=== PATIENT | female | born 1970 | race Caucasian/White ===

== ENCOUNTER 2017-04-24 20:50 | Inpatient (IN) | payer MEDICAID, OTHER ==
[2017-04-24] MEDS: ACETAMINOPHEN 325 MG TAB PO (22:59)
[2017-04-24] MEDS: VANCOMYCIN 1 GM (PMX) 250 ML IVPB (22:59)
[2017-04-24] MEDS: PIPER-TAZO 3.375 GM IV (PMX) 100 ML IVPB (22:59)
[2017-04-24] MEDS: SODIUM CHLORIDE 0.9% 1L BAG IV* (22:59)
[2017-04-24 23:09] LABS: ADD MAN DIFF? NO
[2017-04-24 23:11] LABS: ABNORMAL IP MESSAGE 1; BASOPHIL # 0.1 10^3/ul (0.0-0.1); BASOPHILS % 0.3 % (0.0-2.0); HEMATOCRIT 40.4 % (37.0-47.0); HEMOGLOBIN 13.4 g/dl (12.0-16.0); LYMPHOCYTES # 1.5 10^3/ul (0.8-2.9); LYMPHOCYTES % 8.2 % (15.0-51.0); MEAN CORPUSCULAR HEMOGLOBIN 25.8 pg (29.0-33.0); MEAN CORPUSCULAR HGB CONC 33.2 g/dl (32.0-37.0); MEAN CORPUSCULAR VOLUME 77.8 fl (82.0-101.0); MONOCYTE # 1.3 10^3/ul (0.3-0.9); MONOCYTES % 7.1 % (0.0-11.0); NEUTROPHIL # 15.2 10^3/ul (1.6-7.5); NEUTROPHILS % 82.4 % (39.0-77.0); PLATELET COUNT 198 10^3/UL (140-415); RED BLOOD COUNT 5.19 10^6/ul (4.20-5.40); RED CELL DISTRIBUTION WIDTH 12.6 % (11.5-14.5)
[2017-04-24 23:11] LABS: WHITE BLOOD COUNT 18.4 10^3/ul (4.8-10.8)
[2017-04-24 23:14] LABS: URINE PH (Dip) POC 5.5 (5.0-8.5)
[2017-04-24 23:14] LABS: URINE BLOOD (Dip) POC 2+ (NEGATIVE); URINE KETONES (Dip) POC 4+ (NEGATIVE); URINE LEUKOCYTE EST (Dip) POC Negative (NEGATIVE); URINE NITRITE (Dip) POC Negative (NEGATIVE); URINE TOTAL PROTEIN POC 2+ (NEGATIVE)
[2017-04-24 23:23] LABS: AADO2 Arterial 28.4 mmHg (7.0-24.0); Arterial Base Excess -8.3 mmol/L (-3.0-3); Arterial Blood Gas Oxygen Sat 97.4 mmHG (95.0-98.0); Arterial COHb 0.5 % (0.0-3.0); Arterial Fraction of Oxyhgb 96.8 % (93.0-99.0); Arterial HCO3 13.8 mmol/L (22.0-26.0); Arterial MetHb 0.1 % (0.0-1.5); Arterial Total Hemglobin 12.6 g/dl (12.0-18.0); MODE ROOM AIR; Site Right Radial
[2017-04-24 23:46] LABS: POSITIVE DIFF @See below
[2017-04-25] MEDS: INSULIN LISPRO 100 UNIT/ML VIAL SC (00:04)
[2017-04-25 00:20] LABS: INR 1.26; PT RATIO 1.3
[2017-04-25 00:34] LABS: LACTIC ACID 2.9 mmol/L (0.5-2.0)
[2017-04-25 00:45] LABS: ALANINE AMINOTRANSFERASE 17 IU/L (13-69); ALBUMIN 3.1 g/dl (3.3-4.9); ALBUMIN/GLOBULIN RATIO 0.79; ALKALINE PHOSPHATASE 158 IU/L (42-121); ANION GAP 24 (8-16); ASPARTATE AMINO TRANSFERASE 11 IU/L (15-46); BILIRUBIN,INDIRECT 0.6 mg/dl (0-1.1); BILIRUBIN,TOTAL 0.6 mg/dl (0.2-1.3); BLOOD UREA NITROGEN 8 mg/dl (7-20); CALCIUM 8.5 mg/dl (8.4-10.2); CARBON DIOXIDE 15 mmol/L (21-31); CHLORIDE 97 mmol/L (97-110); CREATININE 0.55 mg/dl (0.44-1.00); POTASSIUM 3.7 mmol/L (3.5-5.1); SODIUM 132 mmol/L (135-144); TROPONIN-I < 0.012 ng/ml (0.00-0.12)
[2017-04-25 00:47] LABS: GLUCOSE 479 mg/dl (70-220)
[2017-04-25 00:59] LABS: ERYTHROCYTE SEDIMENTATION RATE 105 mm/Hr (0-20)
[2017-04-25] MEDS: ACCU-CHEK XX ×24 (01:30→23:10)
[2017-04-25] MEDS: INSULIN HUMAN REGULAR 100 UNIT in SOD CHLORIDE 0.9% 99 ML IV ×2 (01:56→14:08)
[2017-04-25] MEDS ORDERED: ONDANSETRON 4 MG INJ IV ×2 (02:00→13:30)
[2017-04-25] MEDS ORDERED: DEXTROSE 50% 50 ML SYRINGE IV ×2 (02:00)
[2017-04-25] MEDS ORDERED: ACETAMINOPHEN 650MG/20.3ML CUP PO (02:00)
[2017-04-25] MEDS ORDERED: morphine 2 MG INJ IV (02:00)
[2017-04-25] MEDS ORDERED: INSULIN HUMAN REGULAR 100 UNIT in SOD CHLORIDE 0.9% 99 ML IV (02:00)
[2017-04-25] MEDS: SOD CHLORIDE 0.9% 1,000 ML IV ×2 (02:26→05:37)
[2017-04-25 03:13] LABS: ANION GAP 12 (8-16); BLOOD UREA NITROGEN 7 mg/dl (7-20); CALCIUM 8.4 mg/dl (8.4-10.2); CARBON DIOXIDE 22 mmol/L (21-31); CHLORIDE 103 mmol/L (97-110); CREATININE 0.51 mg/dl (0.44-1.00); GLUCOSE 302 mg/dl (70-220); POTASSIUM 3.5 mmol/L (3.5-5.1); SODIUM 133 mmol/L (135-144)
[2017-04-25 03:13] LABS: PHOSPHORUS 1.8 mg/dl (2.5-4.9)
[2017-04-25 03:14] LABS: LACTIC ACID 1.5 mmol/L (0.5-2.0)
[2017-04-25 03:22] LABS: AMPHETAMINE/METHAMPHETAMINE Negative (NEGATIVE); BARBITURATES Negative (NEGATIVE); BENZODIAZEPINES Negative (NEGATIVE); CANNABINOIDS Negative (NEGATIVE); COCAINE Negative (NEGATIVE); OPIATES Negative (NEGATIVE)
[2017-04-25 03:23] LABS: ETHANOL < 10.0 mg/dl
[2017-04-25] MEDS: CLINDAMYCIN 900 MG/D5W (PMX) 50 ML IVPB ×3 (04:25→22:14)
[2017-04-25 04:26] LABS: HEMOGLOBIN A1C 12.7 % (0-5.9)
[2017-04-25] MEDS ORDERED: VANCOMYCIN IV PER PHARMACY XX (04:30)
[2017-04-25 05:18] LABS: ADD MAN DIFF? NO; BASOPHILS % 0.3 % (0.0-2.0); EOSINOPHILS % 0.3 % (0.0-7.0); HEMATOCRIT 31.4 % (37.0-47.0); HEMOGLOBIN 10.7 g/dl (12.0-16.0); LYMPHOCYTES % 12.9 % (15.0-51.0); MEAN CORPUSCULAR HGB CONC 34.1 g/dl (32.0-37.0); MEAN CORPUSCULAR VOLUME 76.4 fl (82.0-101.0); MONOCYTE # 1.1 10^3/ul (0.3-0.9); MONOCYTES % 6.7 % (0.0-11.0); NEUTROPHIL # 12.3 10^3/ul (1.6-7.5); NEUTROPHILS % 78.3 % (39.0-77.0); PLATELET COUNT 198 10^3/UL (140-415); RED BLOOD COUNT 4.11 10^6/ul (4.20-5.40); RED CELL DISTRIBUTION WIDTH 12.6 % (11.5-14.5)
[2017-04-25 05:18] LABS: WHITE BLOOD COUNT 15.7 10^3/ul (4.8-10.8)
[2017-04-25] MEDS ORDERED: PENDING SANTYL ORDER FOR WOUND CARE XX (05:30)
[2017-04-25] MEDS: PANTOPRAZOLE (EC) 40 MG TAB PO (05:31)
[2017-04-25 05:48] LABS: LACTIC ACID 1.2 mmol/L (0.5-2.0)
[2017-04-25 05:49] LABS: ANION GAP 11 (8-16); BLOOD UREA NITROGEN 8 mg/dl (7-20); CALCIUM 8.1 mg/dl (8.4-10.2); CARBON DIOXIDE 20 mmol/L (21-31); CHLORIDE 106 mmol/L (97-110); CREATININE 0.38 mg/dl (0.44-1.00); GLUCOSE 213 mg/dl (70-220); POTASSIUM 3.3 mmol/L (3.5-5.1); SODIUM 134 mmol/L (135-144)
[2017-04-25 05:52] LABS: MAGNESIUM 1.6 mg/dl (1.7-2.5)
[2017-04-25] MEDS: PIPER-TAZO 3.375 GM IV (PMX) 100 ML IVPB ×3 (06:08→18:07)
[2017-04-25] MEDS ORDERED: ONDANSETRON 4 MG INJ (07:00)
[2017-04-25] MEDS ORDERED: METOCLOPRAMIDE 10 MG INJ (07:00)
[2017-04-25] MEDS: POTASSIUM CHLORIDE 50 ML IVPB ×3 (07:56→10:40)
[2017-04-25] MEDS: DEXTROSE 5%-0.45% NACL 1,000 ML IV ×3 (09:01→21:47)
[2017-04-25] MEDS: VANCOMYCIN 1.25 GM in SOD CHLORIDE 0.45% 250 ML IVPB ×2 (10:49→21:07)
[2017-04-25] MEDS ORDERED: COLLAGENASE 30 GM TUBE TOP (11:00)
[2017-04-25] MEDS ORDERED: FENTAnyl 50 MCG/ML VIAL (12:38)
[2017-04-25] MEDS ORDERED: MIDAZOLAM 1 MG/ML 2 ML INJ (12:39)
[2017-04-25] MEDS ORDERED: PHENYLephrine (100 MCG/ML) 5ML SYG (12:39)
[2017-04-25 12:40] LABS: IRON < 10 ug/dl (35-150)
[2017-04-25] MEDS ORDERED: ETOMIDATE 20 MG INJ (12:43)
[2017-04-25] MEDS ORDERED: LIDOCAINE 100 MG SYRINGE (12:43)
[2017-04-25 12:44] LABS: TOTAL IRON BINDING CAPACITY 221 ug/dl (241-421)
[2017-04-25 12:49] LABS: ANION GAP 13 (8-16); BLOOD UREA NITROGEN 8 mg/dl (7-20); CALCIUM 8.4 mg/dl (8.4-10.2); CARBON DIOXIDE 20 mmol/L (21-31); CHLORIDE 106 mmol/L (97-110); CREATININE 0.44 mg/dl (0.44-1.00); GLUCOSE 150 mg/dl (70-220); POTASSIUM 3.7 mmol/L (3.5-5.1); SODIUM 135 mmol/L (135-144)
[2017-04-25] MEDS ORDERED: HYDROmorphONE 2 MG/ML SYG (12:49)
[2017-04-25] MEDS ORDERED: METOCLOPRAMIDE 10 MG INJ IV (13:30)
[2017-04-25] MEDS ORDERED: LABETALOL HCL 20MG INJ IV (13:30)
[2017-04-25] MEDS ORDERED: hydrALAzine 20 MG INJ IV (13:30)
[2017-04-25] MEDS ORDERED: HYDROmorphONE (0.2 MG/ML) 10ML SYG IV ×2 (13:30)
[2017-04-25] MEDS ORDERED: PROCHLORPERAZINE 10 MG INJ IV (13:30)
[2017-04-25] MEDS ORDERED: DIPHENHYDRAMINE 50 MG INJ IV (13:30)
[2017-04-25] MEDS: POLYMYXIN/BACITRACIN 1L IRRIG (13:46)
[2017-04-25] MEDS: TOBRAMYCIN 1.2 GM POWDER (13:47)
[2017-04-25 14:15] LABS: ANION GAP 12 (8-16); BLOOD UREA NITROGEN 9 mg/dl (7-20); CALCIUM 8.2 mg/dl (8.4-10.2); CARBON DIOXIDE 20 mmol/L (21-31); CHLORIDE 107 mmol/L (97-110); CREATININE 0.43 mg/dl (0.44-1.00); GLUCOSE 158 mg/dl (70-220); POTASSIUM 3.4 mmol/L (3.5-5.1); SODIUM 136 mmol/L (135-144)
[2017-04-25] MEDS: DOCUSATE SODIUM 100 MG CAP PO ×2 (16:12→21:06)
[2017-04-25] MEDS: POTASSIUM CHLORIDE (SR) 20 MEQ TAB PO ×2 (17:06→19:51)
[2017-04-25] MEDS: LINAGLIPTIN 5 MG TABLET PO (17:06)
[2017-04-25] MEDS: SOD FERRIC GLUC COMPLX 125 MG in SOD CHLORIDE 0.9% 100 ML IVPB (17:16)
[2017-04-25] MEDS: INSULIN ASPART [NOVOLOG] 3 ML PEN SC ×3 (17:35→21:00)
[2017-04-25 19:22] LABS: ANION GAP 13 (8-16); BLOOD UREA NITROGEN 10 mg/dl (7-20); CALCIUM 8.3 mg/dl (8.4-10.2); CARBON DIOXIDE 21 mmol/L (21-31); CHLORIDE 106 mmol/L (97-110); CREATININE 0.48 mg/dl (0.44-1.00); GLUCOSE 139 mg/dl (70-220); POTASSIUM 3.7 mmol/L (3.5-5.1); SODIUM 136 mmol/L (135-144)
[2017-04-25] MEDS: INSULIN GLARGINE [LANtus] 3 ML PEN SC (19:51)
[2017-04-25 21:54] LABS: ANION GAP 12 (8-16); BLOOD UREA NITROGEN 11 mg/dl (7-20); CALCIUM 8.7 mg/dl (8.4-10.2); CARBON DIOXIDE 23 mmol/L (21-31); CHLORIDE 105 mmol/L (97-110); CREATININE 0.58 mg/dl (0.44-1.00); GLUCOSE 175 mg/dl (70-220); POTASSIUM 4.3 mmol/L (3.5-5.1); SODIUM 136 mmol/L (135-144)
[2017-04-26] MEDS: ACCU-CHEK XX ×12 (00:11→21:00)
[2017-04-26] MEDS: POTASSIUM CHLORIDE (SR) 20 MEQ TAB PO ×2 (00:22→04:51)
[2017-04-26] MEDS: PIPER-TAZO 3.375 GM IV (PMX) 100 ML IVPB ×4 (00:22→17:08)
[2017-04-26] MEDS: SOD CHLORIDE 0.9% 1,000 ML IV (01:12)
[2017-04-26] MEDS: INSULIN ASPART [NOVOLOG] 3 ML PEN SC ×8 (05:28→20:07)
[2017-04-26] MEDS: PANTOPRAZOLE (EC) 40 MG TAB PO (05:29)
[2017-04-26 05:41] LABS: ADD MAN DIFF? NO
[2017-04-26 05:45] LABS: WHITE BLOOD COUNT 14.3 10^3/ul (4.8-10.8)
[2017-04-26 05:45] LABS: BASOPHILS % 0.3 % (0.0-2.0); EOSINOPHILS # 0.1 10^3/ul (0.0-0.5); EOSINOPHILS % 0.5 % (0.0-7.0); HEMATOCRIT 28.8 % (37.0-47.0); HEMOGLOBIN 9.6 g/dl (12.0-16.0); LYMPHOCYTES # 2.3 10^3/ul (0.8-2.9); MEAN CORPUSCULAR HEMOGLOBIN 25.9 pg (29.0-33.0); MEAN CORPUSCULAR HGB CONC 33.3 g/dl (32.0-37.0); MEAN CORPUSCULAR VOLUME 77.8 fl (82.0-101.0); MEAN PLATELET VOLUME 12.1 fl (7.4-10.4); MONOCYTE # 1.1 10^3/ul (0.3-0.9); MONOCYTES % 7.4 % (0.0-11.0); NEUTROPHIL # 10.7 10^3/ul (1.6-7.5); NEUTROPHILS % 74.7 % (39.0-77.0); PLATELET COUNT 213 10^3/UL (140-415); RED CELL DISTRIBUTION WIDTH 13.1 % (11.5-14.5)
[2017-04-26] MEDS: CLINDAMYCIN 900 MG/D5W (PMX) 50 ML IVPB ×3 (06:12→21:27)
[2017-04-26 06:23] LABS: MAGNESIUM 1.6 mg/dl (1.7-2.5)
[2017-04-26 06:23] LABS: PHOSPHORUS 1.8 mg/dl (2.5-4.9)
[2017-04-26 06:26] LABS: ALANINE AMINOTRANSFERASE 23 IU/L (13-69); ALBUMIN 2.6 g/dl (3.3-4.9); ALBUMIN/GLOBULIN RATIO 0.68; ALKALINE PHOSPHATASE 192 IU/L (42-121); ANION GAP 12 (8-16); ASPARTATE AMINO TRANSFERASE 21 IU/L (15-46); BILIRUBIN,INDIRECT 0.5 mg/dl (0-1.1); BILIRUBIN,TOTAL 0.5 mg/dl (0.2-1.3); BLOOD UREA NITROGEN 12 mg/dl (7-20); CALCIUM 8.4 mg/dl (8.4-10.2); CARBON DIOXIDE 20 mmol/L (21-31); CHLORIDE 105 mmol/L (97-110); CREATININE 0.49 mg/dl (0.44-1.00); GLUCOSE 228 mg/dl (70-220); POTASSIUM 4.3 mmol/L (3.5-5.1); SODIUM 133 mmol/L (135-144); TOTAL PROTEIN 6.4 g/dl (6.1-8.1)
[2017-04-26] MEDS: VANCOMYCIN 1.25 GM in SOD CHLORIDE 0.45% 250 ML IVPB ×3 (08:35→22:38)
[2017-04-26] MEDS: COLLAGENASE 30 GM TUBE TOP (09:00)
[2017-04-26] MEDS: LINAGLIPTIN 5 MG TABLET PO (09:35)
[2017-04-26] MEDS: DOCUSATE SODIUM 100 MG CAP PO ×2 (09:35→21:26)
[2017-04-26] MEDS ORDERED: DEXTROSE 50% 50 ML SYRINGE IV ×2 (11:00)
[2017-04-26] MEDS ORDERED: GLUCOSE GEL 15 GRAM TUBE BUCCAL (11:00)
[2017-04-26] MEDS ORDERED: GLUCOSE GEL 15 GRAM TUBE PO ×2 (11:00)
[2017-04-26] MEDS ORDERED: GLUCAGON 1 MG INJ IM (11:00)
[2017-04-26] MEDS: metFORMIN 500 MG TAB PO ×2 (11:08→17:09)
[2017-04-26] MEDS: TERBINAFINE 250 MG TAB PO ×2 (11:43→21:26)
[2017-04-26] MEDS: SOD FERRIC GLUC COMPLX 125 MG in SOD CHLORIDE 0.9% 100 ML IVPB (17:49)
[2017-04-26] MEDS: FLUCONAZOLE 200 MG/NS (PMX) 100 ML IVPB ×2 (20:02→20:08)
[2017-04-26] MEDS: INSULIN GLARGINE [LANtus] 3 ML PEN SC (20:04)
[2017-04-26 21:04] LABS: VANCOMYCIN,TROUGH 6.3 ug/ml (10.0-20.0)
[2017-04-27] MEDS: PIPER-TAZO 3.375 GM IV (PMX) 100 ML IVPB ×4 (01:11→20:11)
[2017-04-27] MEDS: ACCU-CHEK XX ×6 (01:11→10:05)
[2017-04-27] MEDS: VANCOMYCIN 1.25 GM in SOD CHLORIDE 0.45% 250 ML IVPB ×3 (05:11→21:24)
[2017-04-27] MEDS: BENZONATATE 100 MG CAP PO (05:12)
[2017-04-27] MEDS: PANTOPRAZOLE (EC) 40 MG TAB PO (05:12)
[2017-04-27 05:53] LABS: ADD MAN DIFF? NO
[2017-04-27 06:04] LABS: WHITE BLOOD COUNT 12.2 10^3/ul (4.8-10.8)
[2017-04-27 06:04] LABS: BASOPHILS % 0.3 % (0.0-2.0); EOSINOPHILS # 0.1 10^3/ul (0.0-0.5); EOSINOPHILS % 0.8 % (0.0-7.0); HEMATOCRIT 28.3 % (37.0-47.0); HEMOGLOBIN 9.5 g/dl (12.0-16.0); LYMPHOCYTES # 2.7 10^3/ul (0.8-2.9); MEAN CORPUSCULAR HEMOGLOBIN 25.8 pg (29.0-33.0); MEAN CORPUSCULAR HGB CONC 33.6 g/dl (32.0-37.0); MEAN CORPUSCULAR VOLUME 76.9 fl (82.0-101.0); MEAN PLATELET VOLUME 11.9 fl (7.4-10.4); MONOCYTE # 0.9 10^3/ul (0.3-0.9); MONOCYTES % 7.2 % (0.0-11.0); NEUTROPHIL # 8.3 10^3/ul (1.6-7.5); NEUTROPHILS % 68.3 % (39.0-77.0); PLATELET COUNT 222 10^3/UL (140-415); RED BLOOD COUNT 3.68 10^6/ul (4.20-5.40); RED CELL DISTRIBUTION WIDTH 13.4 % (11.5-14.5)
[2017-04-27 06:13] LABS: POSITIVE DIFF @See below
[2017-04-27 06:33] LABS: ANION GAP 13 (8-16); BLOOD UREA NITROGEN 8 mg/dl (7-20); CALCIUM 7.9 mg/dl (8.4-10.2); CARBON DIOXIDE 24 mmol/L (21-31); CHLORIDE 101 mmol/L (97-110); CREATININE 0.49 mg/dl (0.44-1.00); GLUCOSE 183 mg/dl (70-220); POTASSIUM 3.5 mmol/L (3.5-5.1); SODIUM 134 mmol/L (135-144)
[2017-04-27] MEDS: LINAGLIPTIN 5 MG TABLET PO (08:05)
[2017-04-27] MEDS: metFORMIN 500 MG TAB PO ×2 (08:06→17:50)
[2017-04-27] MEDS: FLUCONAZOLE 100 MG TAB PO (08:06)
[2017-04-27] MEDS: DOCUSATE SODIUM 100 MG CAP PO ×2 (08:06→20:18)
[2017-04-27] MEDS: TERBINAFINE 250 MG TAB PO ×2 (08:06→20:18)
[2017-04-27 08:18] LABS: MAGNESIUM 1.4 mg/dl (1.7-2.5)
[2017-04-27] MEDS: INSULIN ASPART [NOVOLOG] 3 ML PEN SC ×7 (08:22→20:19)
[2017-04-27] MEDS: COLLAGENASE 30 GM TUBE TOP (09:00)
[2017-04-27] MEDS: CLINDAMYCIN 900 MG/D5W (PMX) 50 ML IVPB ×2 (10:24→15:09)
[2017-04-27 16:16] LABS: CREATININE, RANDOM URINE 29 mg/dL (20-320); MICROALBUMIN 19.8 mg/dL; MICROALBUMIN/CREATININE RATIO 683 (<30)
[2017-04-27] MEDS: MAGNESIUM SULFATE 4 GM/100 ML 100 ML IVPB (17:40)
[2017-04-27] MEDS: SOD FERRIC GLUC COMPLX 125 MG in SOD CHLORIDE 0.9% 100 ML IVPB (20:17)
[2017-04-27] MEDS: INSULIN GLARGINE [LANtus] 3 ML PEN SC (20:21)
[2017-04-28] MEDS: PIPER-TAZO 3.375 GM IV (PMX) 100 ML IVPB ×2 (00:32→05:29)
[2017-04-28] MEDS: ACCU-CHEK XX (01:40)
[2017-04-28 03:56] LABS: ADD MAN DIFF? NO
[2017-04-28 04:05] LABS: HEMATOCRIT 28.6 % (37.0-47.0); HEMOGLOBIN 9.5 g/dl (12.0-16.0); MEAN CORPUSCULAR HEMOGLOBIN 25.8 pg (29.0-33.0); MEAN CORPUSCULAR HGB CONC 33.2 g/dl (32.0-37.0); MEAN CORPUSCULAR VOLUME 77.7 fl (82.0-101.0); MEAN PLATELET VOLUME 11.2 fl (7.4-10.4); NUCLEATED RED BLOOD CELLS% 0.5 /100WBC (0.0-0.0); PLATELET COUNT 261 10^3/UL (140-415); RED BLOOD COUNT 3.68 10^6/ul (4.20-5.40); RED CELL DISTRIBUTION WIDTH 13.4 % (11.5-14.5)
[2017-04-28 04:17] LABS: ANION GAP 13 (8-16); BLOOD UREA NITROGEN 9 mg/dl (7-20); CALCIUM 8.3 mg/dl (8.4-10.2); CARBON DIOXIDE 27 mmol/L (21-31); CHLORIDE 100 mmol/L (97-110); CREATININE 0.56 mg/dl (0.44-1.00); GLUCOSE 119 mg/dl (70-220); POTASSIUM 3.2 mmol/L (3.5-5.1); SODIUM 137 mmol/L (135-144)
[2017-04-28 04:34] LABS: POSITIVE DIFF @See below
[2017-04-28] MEDS: VANCOMYCIN 1.25 GM in SOD CHLORIDE 0.45% 250 ML IVPB (05:29)
[2017-04-28] MEDS: LEVOFLOXACIN 750 MG TABLET PO (05:29)
[2017-04-28] MEDS: PANTOPRAZOLE (EC) 40 MG TAB PO (05:29)
[2017-04-28] MEDS: INSULIN ASPART [NOVOLOG] 3 ML PEN SC ×7 (08:00→21:00)
[2017-04-28] MEDS: metFORMIN 500 MG TAB PO ×2 (08:04→17:27)
[2017-04-28] MEDS: SODIUM HYPOCHLORITE 1/40% 1L IRRIG IRR ×2 (08:04→21:10)
[2017-04-28] MEDS: LINAGLIPTIN 5 MG TABLET PO (08:05)
[2017-04-28] MEDS: DOCUSATE SODIUM 100 MG CAP PO ×2 (08:05→21:03)
[2017-04-28] MEDS: TERBINAFINE 250 MG TAB PO ×2 (08:05→21:03)
[2017-04-28] MEDS: ENOXAPARIN 40 MG/0.4 ML SYG SC (08:07)
[2017-04-28] MEDS: COLLAGENASE 30 GM TUBE TOP (08:14)
[2017-04-28] MEDS: VANCOMYCIN 1 GM 250 ML IVPB ×2 (12:33→21:14)
[2017-04-28] MEDS: POTASSIUM CHLORIDE (SR) 20 MEQ TAB PO (12:33)
[2017-04-28] MEDS: FLUCONAZOLE 100 MG TAB PO (16:11)
[2017-04-28] MEDS: SOD FERRIC GLUC COMPLX 125 MG in SOD CHLORIDE 0.9% 100 ML IVPB (16:15)
[2017-04-28] MEDS: INSULIN GLARGINE [LANtus] 3 ML PEN SC (21:07)
[2017-04-29] MEDS: ACCU-CHEK XX (02:00)
[2017-04-29] MEDS: PANTOPRAZOLE (EC) 40 MG TAB PO (05:17)
[2017-04-29] MEDS: LEVOFLOXACIN 750 MG TABLET PO (05:17)
[2017-04-29] MEDS: VANCOMYCIN 1 GM 250 ML IVPB ×3 (05:20→22:21)
[2017-04-29 06:15] LABS: ADD MAN DIFF? NO
[2017-04-29 06:19] LABS: BASOPHILS % 0.3 % (0.0-2.0); EOSINOPHILS # 0.1 10^3/ul (0.0-0.5); EOSINOPHILS % 0.9 % (0.0-7.0); HEMOGLOBIN 9.9 g/dl (12.0-16.0); LYMPHOCYTES # 3.6 10^3/ul (0.8-2.9); LYMPHOCYTES % 26.2 % (15.0-51.0); MEAN CORPUSCULAR HEMOGLOBIN 25.4 pg (29.0-33.0); MEAN CORPUSCULAR HGB CONC 31.9 g/dl (32.0-37.0); MEAN CORPUSCULAR VOLUME 79.7 fl (82.0-101.0); MONOCYTE # 1.3 10^3/ul (0.3-0.9); MONOCYTES % 9.4 % (0.0-11.0); NEUTROPHIL # 8.1 10^3/ul (1.6-7.5); NEUTROPHILS % 59.2 % (39.0-77.0); NUCLEATED RED BLOOD CELLS # 0.1 10^3/ul (0.0-0.0); PLATELET COUNT 343 10^3/UL (140-415); RED BLOOD COUNT 3.89 10^6/ul (4.20-5.40); RED CELL DISTRIBUTION WIDTH 13.9 % (11.5-14.5)
[2017-04-29 06:19] LABS: WHITE BLOOD COUNT 13.7 10^3/ul (4.8-10.8)
[2017-04-29 06:31] LABS: POSITIVE DIFF @See below
[2017-04-29 06:59] LABS: ANION GAP 14 (8-16); BLOOD UREA NITROGEN 9 mg/dl (7-20); CALCIUM 8.6 mg/dl (8.4-10.2); CARBON DIOXIDE 28 mmol/L (21-31); CHLORIDE 104 mmol/L (97-110); CREATININE 0.62 mg/dl (0.44-1.00); GLUCOSE 100 mg/dl (70-220); PHOSPHORUS 3.4 mg/dl (2.5-4.9); POTASSIUM 3.6 mmol/L (3.5-5.1); SODIUM 142 mmol/L (135-144)
[2017-04-29] MEDS: COLLAGENASE 30 GM TUBE TOP (08:07)
[2017-04-29] MEDS: INSULIN ASPART [NOVOLOG] 3 ML PEN SC ×7 (08:12→21:00)
[2017-04-29] MEDS: DOCUSATE SODIUM 100 MG CAP PO ×2 (08:13→21:19)
[2017-04-29] MEDS: LINAGLIPTIN 5 MG TABLET PO (08:14)
[2017-04-29] MEDS: FLUCONAZOLE 100 MG TAB PO (08:14)
[2017-04-29] MEDS: metFORMIN 500 MG TAB PO ×2 (08:14→17:14)
[2017-04-29] MEDS: TERBINAFINE 250 MG TAB PO ×2 (08:14→21:19)
[2017-04-29] MEDS: SODIUM HYPOCHLORITE 1/40% 1L IRRIG IRR ×2 (08:15→21:19)
[2017-04-29] MEDS: ENOXAPARIN 40 MG/0.4 ML SYG SC (08:26)
[2017-04-29] MEDS: POTASSIUM CHLORIDE (SR) 20 MEQ TAB PO (12:02)
[2017-04-29] MEDS: SOD FERRIC GLUC COMPLX 125 MG in SOD CHLORIDE 0.9% 100 ML IVPB (16:45)
[2017-04-29] MEDS: INSULIN GLARGINE [LANtus] 3 ML PEN SC (21:22)
[2017-04-29 21:39] LABS: VANCOMYCIN,TROUGH 15.1 ug/ml (10.0-20.0)
[2017-04-29] MEDS: METOPROLOL 25 MG TAB PO (22:15)
[2017-04-30] MEDS: ACCU-CHEK XX (02:00)
[2017-04-30] MEDS: LEVOFLOXACIN 750 MG TABLET PO (06:00)
[2017-04-30] MEDS: PANTOPRAZOLE (EC) 40 MG TAB PO (06:00)
[2017-04-30] MEDS: VANCOMYCIN 1 GM 250 ML IVPB ×3 (06:00→21:00)
[2017-04-30 06:46] LABS: ADD MAN DIFF? NO
[2017-04-30 06:51] LABS: WHITE BLOOD COUNT 12.6 10^3/ul (4.8-10.8)
[2017-04-30 06:51] LABS: BASOPHILS % 0.2 % (0.0-2.0); EOSINOPHILS # 0.1 10^3/ul (0.0-0.5); HEMATOCRIT 30.5 % (37.0-47.0); HEMOGLOBIN 9.6 g/dl (12.0-16.0); LYMPHOCYTES # 2.9 10^3/ul (0.8-2.9); MEAN CORPUSCULAR HEMOGLOBIN 25.7 pg (29.0-33.0); MEAN CORPUSCULAR HGB CONC 31.5 g/dl (32.0-37.0); MEAN CORPUSCULAR VOLUME 81.6 fl (82.0-101.0); MEAN PLATELET VOLUME 10.8 fl (7.4-10.4); MONOCYTE # 1.1 10^3/ul (0.3-0.9); MONOCYTES % 8.3 % (0.0-11.0); NEUTROPHILS % 63.5 % (39.0-77.0); NUCLEATED RED BLOOD CELLS # 0.1 10^3/ul (0.0-0.0); NUCLEATED RED BLOOD CELLS% 0.8 /100WBC (0.0-0.0); PLATELET COUNT 353 10^3/UL (140-415); RED BLOOD COUNT 3.74 10^6/ul (4.20-5.40); RED CELL DISTRIBUTION WIDTH 14.3 % (11.5-14.5)
[2017-04-30 07:25] LABS: ANION GAP 12 (8-16); BLOOD UREA NITROGEN 10 mg/dl (7-20); CALCIUM 9.1 mg/dl (8.4-10.2); CARBON DIOXIDE 30 mmol/L (21-31); CHLORIDE 105 mmol/L (97-110); CREATININE 0.64 mg/dl (0.44-1.00); GLUCOSE 116 mg/dl (70-220); POTASSIUM 3.7 mmol/L (3.5-5.1); SODIUM 143 mmol/L (135-144)
[2017-04-30] MEDS: INSULIN ASPART [NOVOLOG] 3 ML PEN SC ×7 (08:08→21:00)
[2017-04-30] MEDS: metFORMIN 500 MG TAB PO ×2 (08:58→18:08)
[2017-04-30] MEDS: DOCUSATE SODIUM 100 MG CAP PO ×2 (08:58→20:59)
[2017-04-30] MEDS: LINAGLIPTIN 5 MG TABLET PO (08:58)
[2017-04-30] MEDS: TERBINAFINE 250 MG TAB PO ×2 (08:58→20:58)
[2017-04-30] MEDS: FLUCONAZOLE 100 MG TAB PO (08:58)
[2017-04-30] MEDS: METOPROLOL 25 MG TAB PO ×2 (08:59→20:59)
[2017-04-30] MEDS: SODIUM HYPOCHLORITE 1/40% 1L IRRIG IRR ×2 (09:00→21:03)
[2017-04-30] MEDS: COLLAGENASE 30 GM TUBE TOP (09:02)
[2017-04-30] MEDS: ENOXAPARIN 40 MG/0.4 ML SYG SC (09:03)
[2017-04-30] MEDS: INSULIN GLARGINE [LANtus] 3 ML PEN SC (21:07)
[2017-05-01] MEDS: ACCU-CHEK XX (02:00)
[2017-05-01] MEDS: VANCOMYCIN 1 GM 250 ML IVPB ×3 (05:27→20:40)
[2017-05-01] MEDS: LEVOFLOXACIN 750 MG TABLET PO (05:29)
[2017-05-01] MEDS: PANTOPRAZOLE (EC) 40 MG TAB PO (05:29)
[2017-05-01 06:20] LABS: ADD MAN DIFF? NO
[2017-05-01 06:32] LABS: WHITE BLOOD COUNT 11.3 10^3/ul (4.8-10.8)
[2017-05-01 06:32] LABS: BASOPHILS % 0.3 % (0.0-2.0); EOSINOPHILS # 0.2 10^3/ul (0.0-0.5); EOSINOPHILS % 1.4 % (0.0-7.0); HEMATOCRIT 31.3 % (37.0-47.0); HEMOGLOBIN 9.7 g/dl (12.0-16.0); LYMPHOCYTES # 2.8 10^3/ul (0.8-2.9); LYMPHOCYTES % 25.2 % (15.0-51.0); MEAN CORPUSCULAR HEMOGLOBIN 25.3 pg (29.0-33.0); MEAN CORPUSCULAR VOLUME 81.5 fl (82.0-101.0); MEAN PLATELET VOLUME 10.5 fl (7.4-10.4); MONOCYTE # 0.9 10^3/ul (0.3-0.9); MONOCYTES % 7.7 % (0.0-11.0); NEUTROPHILS % 61.9 % (39.0-77.0); NUCLEATED RED BLOOD CELLS # 0.1 10^3/ul (0.0-0.0); NUCLEATED RED BLOOD CELLS% 0.6 /100WBC (0.0-0.0); PLATELET COUNT 386 10^3/UL (140-415); RED BLOOD COUNT 3.84 10^6/ul (4.20-5.40); RED CELL DISTRIBUTION WIDTH 14.5 % (11.5-14.5)
[2017-05-01 07:04] LABS: ANION GAP 14 (8-16); BLOOD UREA NITROGEN 12 mg/dl (7-20); CALCIUM 8.8 mg/dl (8.4-10.2); CARBON DIOXIDE 29 mmol/L (21-31); CHLORIDE 104 mmol/L (97-110); CREATININE 0.67 mg/dl (0.44-1.00); GLUCOSE 125 mg/dl (70-220); POTASSIUM 3.8 mmol/L (3.5-5.1); SODIUM 143 mmol/L (135-144)
[2017-05-01] MEDS: INSULIN ASPART [NOVOLOG] 3 ML PEN SC ×7 (08:15→20:42)
[2017-05-01] MEDS: TERBINAFINE 250 MG TAB PO ×2 (08:24→20:41)
[2017-05-01] MEDS: DOCUSATE SODIUM 100 MG CAP PO ×2 (08:24→20:42)
[2017-05-01] MEDS: metFORMIN 500 MG TAB PO ×2 (08:24→17:46)
[2017-05-01] MEDS: LINAGLIPTIN 5 MG TABLET PO (08:24)
[2017-05-01] MEDS: FLUCONAZOLE 100 MG TAB PO (08:24)
[2017-05-01] MEDS: COLLAGENASE 30 GM TUBE TOP (08:25)
[2017-05-01] MEDS: SODIUM HYPOCHLORITE 1/40% 1L IRRIG IRR ×2 (08:25→20:42)
[2017-05-01] MEDS: METOPROLOL 25 MG TAB PO ×2 (08:26→20:42)
[2017-05-01] MEDS: ENOXAPARIN 40 MG/0.4 ML SYG SC (08:29)
[2017-05-01] MEDS: INSULIN GLARGINE [LANtus] 3 ML PEN SC (20:45)
[2017-05-02] MEDS: ACCU-CHEK XX (02:00)
[2017-05-02 05:34] LABS: VANCOMYCIN,TROUGH 17.6 ug/ml (10.0-20.0)
[2017-05-02] MEDS: VANCOMYCIN 1 GM 250 ML IVPB (06:25)
[2017-05-02] MEDS: LEVOFLOXACIN 750 MG TABLET PO (06:25)
[2017-05-02] MEDS: PANTOPRAZOLE (EC) 40 MG TAB PO (06:25)
[2017-05-02] MEDS: INSULIN ASPART [NOVOLOG] 3 ML PEN SC ×7 (08:15→20:55)
[2017-05-02] MEDS: TERBINAFINE 250 MG TAB PO ×2 (08:18→20:51)
[2017-05-02] MEDS: metFORMIN 500 MG TAB PO ×2 (08:18→17:36)
[2017-05-02] MEDS: FLUCONAZOLE 100 MG TAB PO (08:18)
[2017-05-02] MEDS: DOCUSATE SODIUM 100 MG CAP PO ×2 (08:18→20:51)
[2017-05-02] MEDS: LINAGLIPTIN 5 MG TABLET PO (08:18)
[2017-05-02] MEDS: METOPROLOL 25 MG TAB PO ×2 (08:19→20:51)
[2017-05-02] MEDS: SODIUM HYPOCHLORITE 1/40% 1L IRRIG IRR (08:19)
[2017-05-02] MEDS: COLLAGENASE 30 GM TUBE TOP (08:19)
[2017-05-02] MEDS: ENOXAPARIN 40 MG/0.4 ML SYG SC (08:26)
[2017-05-02] MEDS: VANCOMYCIN 750 MG in DEXTROSE 5% 150 ML IVPB ×2 (12:37→21:00)
[2017-05-02] MEDS: INSULIN GLARGINE [LANtus] 3 ML PEN SC (21:05)
[2017-05-03] MEDS: ACCU-CHEK XX (02:00)
[2017-05-03] MEDS: SODIUM HYPOCHLORITE 1/40% 1L IRRIG IRR ×3 (05:31→20:47)
[2017-05-03] MEDS: PANTOPRAZOLE (EC) 40 MG TAB PO (05:32)
[2017-05-03] MEDS: LEVOFLOXACIN 750 MG TABLET PO (05:32)
[2017-05-03] MEDS: VANCOMYCIN 750 MG in DEXTROSE 5% 150 ML IVPB ×3 (05:32→20:45)
[2017-05-03] MEDS: FLUCONAZOLE 100 MG TAB PO (08:14)
[2017-05-03] MEDS: metFORMIN 500 MG TAB PO ×2 (08:14→17:45)
[2017-05-03] MEDS: METOPROLOL 25 MG TAB PO ×2 (08:14→20:45)
[2017-05-03] MEDS: DOCUSATE SODIUM 100 MG CAP PO ×2 (08:14→20:45)
[2017-05-03] MEDS: TERBINAFINE 250 MG TAB PO (08:15)
[2017-05-03] MEDS: INSULIN ASPART [NOVOLOG] 3 ML PEN SC ×7 (08:15→20:46)
[2017-05-03] MEDS: LINAGLIPTIN 5 MG TABLET PO (08:15)
[2017-05-03] MEDS: COLLAGENASE 30 GM TUBE TOP (08:15)
[2017-05-03] MEDS: ENOXAPARIN 40 MG/0.4 ML SYG SC (08:20)
[2017-05-03] MEDS: INSULIN GLARGINE [LANtus] 3 ML PEN SC (20:52)
[2017-05-04] MEDS: ACCU-CHEK XX (01:34)
[2017-05-04 04:42] LABS: CREATININE 0.74 mg/dl (0.44-1.00)
[2017-05-04 04:42] LABS: BLOOD UREA NITROGEN 16 mg/dl (7-20)
[2017-05-04 04:46] LABS: VANCOMYCIN,TROUGH 17.6 ug/ml (10.0-20.0)
[2017-05-04] MEDS: VANCOMYCIN 750 MG in DEXTROSE 5% 150 ML IVPB (05:46)
[2017-05-04] MEDS: LEVOFLOXACIN 750 MG TABLET PO (05:47)
[2017-05-04] MEDS: PANTOPRAZOLE (EC) 40 MG TAB PO (05:47)
[2017-05-04] MEDS: DOCUSATE SODIUM 100 MG CAP PO ×2 (08:15→20:34)
[2017-05-04] MEDS: FLUCONAZOLE 100 MG TAB PO (08:15)
[2017-05-04] MEDS: INSULIN ASPART [NOVOLOG] 3 ML PEN SC ×7 (08:15→20:40)
[2017-05-04] MEDS: LINAGLIPTIN 5 MG TABLET PO (08:16)
[2017-05-04] MEDS: metFORMIN 500 MG TAB PO ×2 (08:16→17:37)
[2017-05-04] MEDS: SODIUM HYPOCHLORITE 1/40% 1L IRRIG IRR ×2 (08:17→20:35)
[2017-05-04] MEDS: METOPROLOL 25 MG TAB PO ×2 (08:17→20:34)
[2017-05-04] MEDS: COLLAGENASE 30 GM TUBE TOP (08:18)
[2017-05-04] MEDS: ENOXAPARIN 40 MG/0.4 ML SYG SC (08:19)
[2017-05-04] MEDS: INFLUENZA VIRUS VACCINE 0.5 ML SYG IM* (10:08)
[2017-05-04] MEDS: SOD FERRIC GLUC COMPLX 125 MG in SOD CHLORIDE 0.9% 100 ML IVPB (18:09)
[2017-05-04] MEDS: VANCOMYCIN 1 GM 250 ML IVPB (19:59)
[2017-05-04] MEDS: ATORVASTATIN 40 MG TAB PO (20:34)
[2017-05-04] MEDS: INSULIN GLARGINE [LANtus] 3 ML PEN SC (20:39)
[2017-05-05] MEDS: DEXTROSE 5%-0.45% NACL 1,000 ML IV ×2 (00:16→16:40)
[2017-05-05] MEDS: ACCU-CHEK XX (02:00)
[2017-05-05] MEDS: LEVOFLOXACIN 750 MG TABLET PO (06:00)
[2017-05-05] MEDS: PANTOPRAZOLE (EC) 40 MG TAB PO (06:00)
[2017-05-05] MEDS: VANCOMYCIN 1 GM 250 ML IVPB ×2 (06:15→18:03)
[2017-05-05] MEDS: metFORMIN 500 MG TAB PO ×2 (08:05→16:59)
[2017-05-05] MEDS: DOCUSATE SODIUM 100 MG CAP PO ×2 (08:13→20:50)
[2017-05-05] MEDS: SODIUM HYPOCHLORITE 1/40% 1L IRRIG IRR ×2 (08:13→20:50)
[2017-05-05] MEDS: FERROUS FUMARATE (SR) TAB PO (08:13)
[2017-05-05] MEDS: INSULIN ASPART [NOVOLOG] 3 ML PEN SC ×7 (08:13→20:51)
[2017-05-05] MEDS: LINAGLIPTIN 5 MG TABLET PO (08:13)
[2017-05-05] MEDS: ASPIRIN 81 MG TAB PO (08:13)
[2017-05-05] MEDS: COLLAGENASE 30 GM TUBE TOP (08:14)
[2017-05-05] MEDS: METOPROLOL 25 MG TAB PO ×2 (08:14→20:51)
[2017-05-05] MEDS: ENOXAPARIN 40 MG/0.4 ML SYG SC (08:16)
[2017-05-05] MEDS ORDERED: FENTAnyl 50 MCG/ML VIAL ×2 (14:56→15:03)
[2017-05-05] MEDS ORDERED: MIDAZOLAM 1 MG/ML 2 ML INJ (14:56)
[2017-05-05] MEDS ORDERED: ACETAMINOPHEN 1000MG/100ML IV 100 ML (14:57)
[2017-05-05] MEDS ORDERED: HYDROmorphONE (0.2 MG/ML) 10ML SYG IV (15:00)
[2017-05-05] MEDS: TOBRAMYCIN 1.2 GM POWDER (15:38)
[2017-05-05] MEDS: SOD FERRIC GLUC COMPLX 125 MG in SOD CHLORIDE 0.9% 100 ML IVPB (16:59)
[2017-05-05] MEDS: ATORVASTATIN 40 MG TAB PO (20:50)
[2017-05-05] MEDS: INSULIN GLARGINE [LANtus] 3 ML PEN SC (20:52)
[2017-05-06] MEDS: ACCU-CHEK XX (02:00)
[2017-05-06] MEDS: PANTOPRAZOLE (EC) 40 MG TAB PO (05:38)
[2017-05-06] MEDS: LEVOFLOXACIN 750 MG TABLET PO (05:38)
[2017-05-06] MEDS: VANCOMYCIN 1 GM 250 ML IVPB ×2 (05:38→18:11)
[2017-05-06 07:04] LABS: BLOOD UREA NITROGEN 17 mg/dl (7-20)
[2017-05-06] MEDS: FERROUS FUMARATE (SR) TAB PO (07:51)
[2017-05-06] MEDS: INSULIN ASPART [NOVOLOG] 3 ML PEN SC ×7 (07:51→20:16)
[2017-05-06] MEDS: METOPROLOL 25 MG TAB PO (07:52)
[2017-05-06] MEDS: metFORMIN 500 MG TAB PO ×2 (07:52→16:44)
[2017-05-06] MEDS: SODIUM HYPOCHLORITE 1/40% 1L IRRIG IRR ×2 (07:52→20:20)
[2017-05-06] MEDS: DOCUSATE SODIUM 100 MG CAP PO ×2 (07:52→20:20)
[2017-05-06] MEDS: ASPIRIN 81 MG TAB PO (07:52)
[2017-05-06] MEDS: LINAGLIPTIN 5 MG TABLET PO (07:53)
[2017-05-06] MEDS: COLLAGENASE 30 GM TUBE TOP (08:37)
[2017-05-06] MEDS: ENOXAPARIN 40 MG/0.4 ML SYG SC (08:37)
[2017-05-06] MEDS: SOD FERRIC GLUC COMPLX 125 MG in SOD CHLORIDE 0.9% 100 ML IVPB (16:44)
[2017-05-06] MEDS: ATORVASTATIN 40 MG TAB PO (20:20)
[2017-05-06] MEDS: INSULIN GLARGINE [LANtus] 3 ML PEN SC (20:20)
[2017-05-07] MEDS: ACCU-CHEK XX (02:00)
[2017-05-07] MEDS: LEVOFLOXACIN 750 MG TABLET PO (05:28)
[2017-05-07 06:29] LABS: VANCOMYCIN,TROUGH 13.3 ug/ml (10.0-20.0)
[2017-05-07] MEDS: VANCOMYCIN 1 GM 250 ML IVPB (06:51)
[2017-05-07] MEDS: INSULIN ASPART [NOVOLOG] 3 ML PEN SC ×7 (07:52→20:28)
[2017-05-07] MEDS: ASPIRIN 81 MG TAB PO (08:05)
[2017-05-07] MEDS: LINAGLIPTIN 5 MG TABLET PO (08:05)
[2017-05-07] MEDS: metFORMIN 500 MG TAB PO ×2 (08:05→17:32)
[2017-05-07] MEDS: DOCUSATE SODIUM 100 MG CAP PO ×2 (08:05→20:23)
[2017-05-07] MEDS: FERROUS FUMARATE (SR) TAB PO (08:05)
[2017-05-07] MEDS: ENOXAPARIN 40 MG/0.4 ML SYG SC (08:06)
[2017-05-07] MEDS: COLLAGENASE 30 GM TUBE TOP (08:07)
[2017-05-07] MEDS: SODIUM HYPOCHLORITE 1/40% 1L IRRIG IRR ×2 (10:17→20:24)
[2017-05-07] MEDS: CEFTRIAXONE 1 GM/50 ML (PMX) 50 ML IVPB (15:10)
[2017-05-07] MEDS: INSULIN GLARGINE [LANtus] 3 ML PEN SC ×2 (20:00→20:36)
[2017-05-07] MEDS: ATORVASTATIN 40 MG TAB PO (20:23)
[2017-05-08] MEDS: ACCU-CHEK XX (02:00)
[2017-05-08 05:53] LABS: ADD MAN DIFF? NO
[2017-05-08 06:01] LABS: BASOPHILS % 0.5 % (0.0-2.0); EOSINOPHILS # 0.1 10^3/ul (0.0-0.5); EOSINOPHILS % 1.3 % (0.0-7.0); HEMOGLOBIN 12.2 g/dl (12.0-16.0); LYMPHOCYTES # 2.6 10^3/ul (0.8-2.9); LYMPHOCYTES % 29.7 % (15.0-51.0); MEAN CORPUSCULAR HEMOGLOBIN 25.7 pg (29.0-33.0); MEAN CORPUSCULAR HGB CONC 32.1 g/dl (32.0-37.0); MEAN CORPUSCULAR VOLUME 80.2 fl (82.0-101.0); MEAN PLATELET VOLUME 9.9 fl (7.4-10.4); MONOCYTE # 0.5 10^3/ul (0.3-0.9); NEUTROPHIL # 5.4 10^3/ul (1.6-7.5); NEUTROPHILS % 61.9 % (39.0-77.0); PLATELET COUNT 382 10^3/UL (140-415); RED BLOOD COUNT 4.74 10^6/ul (4.20-5.40); RED CELL DISTRIBUTION WIDTH 13.4 % (11.5-14.5)
[2017-05-08 06:01] LABS: WHITE BLOOD COUNT 8.7 10^3/ul (4.8-10.8)
[2017-05-08 06:44] LABS: BLOOD UREA NITROGEN 18 mg/dl (7-20)
[2017-05-08 06:44] LABS: CREATININE 0.79 mg/dl (0.44-1.00)
[2017-05-08 06:54] LABS: ANION GAP 15 (8-16); BLOOD UREA NITROGEN 19 mg/dl (7-20); CALCIUM 9.3 mg/dl (8.4-10.2); CARBON DIOXIDE 28 mmol/L (21-31); CHLORIDE 103 mmol/L (97-110); CREATININE 0.74 mg/dl (0.44-1.00); GLUCOSE 160 mg/dl (70-220); POTASSIUM 4.7 mmol/L (3.5-5.1); SODIUM 141 mmol/L (135-144)
[2017-05-08] MEDS: INSULIN ASPART [NOVOLOG] 3 ML PEN SC ×7 (08:15→20:55)
[2017-05-08] MEDS: FERROUS FUMARATE (SR) TAB PO (09:45)
[2017-05-08] MEDS: metFORMIN 500 MG TAB PO ×2 (09:45→17:55)
[2017-05-08] MEDS: DOCUSATE SODIUM 100 MG CAP PO ×2 (09:46→20:52)
[2017-05-08] MEDS: ASPIRIN 81 MG TAB PO (09:46)
[2017-05-08] MEDS: LINAGLIPTIN 5 MG TABLET PO (09:46)
[2017-05-08] MEDS: SODIUM HYPOCHLORITE 1/40% 1L IRRIG IRR ×2 (09:47→20:53)
[2017-05-08] MEDS: ENOXAPARIN 40 MG/0.4 ML SYG SC (09:51)
[2017-05-08] MEDS: COLLAGENASE 30 GM TUBE TOP (17:55)
[2017-05-08] MEDS: CEFTRIAXONE 1 GM/50 ML (PMX) 50 ML IVPB (17:55)
[2017-05-08] MEDS: ATORVASTATIN 40 MG TAB PO (20:52)
[2017-05-08] MEDS: INSULIN GLARGINE [LANtus] 3 ML PEN SC (20:55)
[2017-05-09] MEDS: ACCU-CHEK XX (02:00)
[2017-05-09] MEDS: INSULIN ASPART [NOVOLOG] 3 ML PEN SC ×7 (08:15→20:24)
[2017-05-09] MEDS: FERROUS FUMARATE (SR) TAB PO (08:35)
[2017-05-09] MEDS: metFORMIN 500 MG TAB PO ×2 (08:35→17:39)
[2017-05-09] MEDS: COLLAGENASE 30 GM TUBE TOP (08:36)
[2017-05-09] MEDS: DOCUSATE SODIUM 100 MG CAP PO ×2 (08:36→20:23)
[2017-05-09] MEDS: SODIUM HYPOCHLORITE 1/40% 1L IRRIG IRR ×2 (08:36→20:30)
[2017-05-09] MEDS: LINAGLIPTIN 5 MG TABLET PO (08:36)
[2017-05-09] MEDS: ASPIRIN 81 MG TAB PO (08:36)
[2017-05-09] MEDS: ENOXAPARIN 40 MG/0.4 ML SYG SC (08:44)
[2017-05-09] MEDS: CEFTRIAXONE 1 GM/50 ML (PMX) 50 ML IVPB (17:39)
[2017-05-09] MEDS: ATORVASTATIN 40 MG TAB PO (20:23)
[2017-05-09] MEDS: INSULIN GLARGINE [LANtus] 3 ML PEN SC (20:29)
[2017-05-10] MEDS: ACCU-CHEK XX (02:00)
[2017-05-10] MEDS: ASPIRIN 81 MG TAB PO (08:58)
[2017-05-10] MEDS: FERROUS FUMARATE (SR) TAB PO (08:58)
[2017-05-10] MEDS: SODIUM HYPOCHLORITE 1/40% 1L IRRIG IRR (08:58)
[2017-05-10] MEDS: DOCUSATE SODIUM 100 MG CAP PO ×2 (08:58→20:37)
[2017-05-10] MEDS: metFORMIN 500 MG TAB PO ×2 (08:58→18:04)
[2017-05-10] MEDS: COLLAGENASE 30 GM TUBE TOP (08:58)
[2017-05-10] MEDS: LINAGLIPTIN 5 MG TABLET PO (08:58)
[2017-05-10] MEDS: ENOXAPARIN 40 MG/0.4 ML SYG SC (09:09)
[2017-05-10] MEDS: INSULIN ASPART [NOVOLOG] 3 ML PEN SC ×7 (09:10→20:30)
[2017-05-10] MEDS: CEFTRIAXONE 1 GM/50 ML (PMX) 50 ML IVPB (18:17)
[2017-05-10] MEDS: INSULIN GLARGINE [LANtus] 3 ML PEN SC (20:36)
[2017-05-10] MEDS: ATORVASTATIN 40 MG TAB PO (20:36)
[2017-05-11] MEDS: ACCU-CHEK XX (02:00)
[2017-05-11] MEDS: INSULIN ASPART [NOVOLOG] 3 ML PEN SC ×7 (08:15→21:00)
[2017-05-11] MEDS: FERROUS FUMARATE (SR) TAB PO (08:26)
[2017-05-11] MEDS: ASPIRIN 81 MG TAB PO (08:27)
[2017-05-11] MEDS: metFORMIN 500 MG TAB PO ×2 (08:27→17:48)
[2017-05-11] MEDS: DOCUSATE SODIUM 100 MG CAP PO ×2 (08:27→21:00)
[2017-05-11] MEDS: LINAGLIPTIN 5 MG TABLET PO (08:28)
[2017-05-11] MEDS: ENOXAPARIN 40 MG/0.4 ML SYG SC (08:30)
[2017-05-11] MEDS: CEFTRIAXONE 1 GM/50 ML (PMX) 50 ML IVPB (15:08)
[2017-05-11] MEDS: INSULIN GLARGINE [LANtus] 3 ML PEN SC ×2 (20:00→23:12)
[2017-05-11] MEDS: ATORVASTATIN 40 MG TAB PO (20:49)
[2017-05-12] MEDS: ACCU-CHEK XX (02:00)
[2017-05-12] MEDS: INSULIN ASPART [NOVOLOG] 3 ML PEN SC ×7 (08:31→20:09)
[2017-05-12] MEDS: DOCUSATE SODIUM 100 MG CAP PO ×2 (09:10→20:09)
[2017-05-12] MEDS: LINAGLIPTIN 5 MG TABLET PO (09:10)
[2017-05-12] MEDS: FERROUS FUMARATE (SR) TAB PO (09:10)
[2017-05-12] MEDS: metFORMIN 500 MG TAB PO ×2 (09:10→17:42)
[2017-05-12] MEDS: ASPIRIN 81 MG TAB PO (09:10)
[2017-05-12] MEDS: ENOXAPARIN 40 MG/0.4 ML SYG SC (09:18)
[2017-05-12] MEDS: CEFTRIAXONE 1 GM/50 ML (PMX) 50 ML IVPB (14:17)
[2017-05-12] MEDS: INSULIN GLARGINE [LANtus] 3 ML PEN SC (20:06)
[2017-05-12] MEDS: ATORVASTATIN 40 MG TAB PO (20:07)
[2017-05-13] MEDS: ACCU-CHEK XX (02:00)
[2017-05-13] MEDS: INSULIN ASPART [NOVOLOG] 3 ML PEN SC ×7 (08:12→20:14)
[2017-05-13] MEDS: ENOXAPARIN 40 MG/0.4 ML SYG SC (08:13)
[2017-05-13] MEDS: metFORMIN 500 MG TAB PO ×2 (08:15→17:31)
[2017-05-13] MEDS: ASPIRIN 81 MG TAB PO (08:15)
[2017-05-13] MEDS: DOCUSATE SODIUM 100 MG CAP PO ×2 (08:15→20:13)
[2017-05-13] MEDS: LINAGLIPTIN 5 MG TABLET PO (08:15)
[2017-05-13] MEDS: FERROUS FUMARATE (SR) TAB PO (08:19)
[2017-05-13] MEDS: CEFTRIAXONE 1 GM/50 ML (PMX) 50 ML IVPB (15:20)
[2017-05-13] MEDS: ATORVASTATIN 40 MG TAB PO (20:13)
[2017-05-13] MEDS: INSULIN GLARGINE [LANtus] 3 ML PEN SC (20:16)
[2017-05-14] MEDS: ACCU-CHEK XX (02:00)
[2017-05-14] MEDS: INSULIN ASPART [NOVOLOG] 3 ML PEN SC ×7 (08:15→20:44)
[2017-05-14] MEDS: LINAGLIPTIN 5 MG TABLET PO (08:20)
[2017-05-14] MEDS: FERROUS FUMARATE (SR) TAB PO (08:20)
[2017-05-14] MEDS: ASPIRIN 81 MG TAB PO (08:20)
[2017-05-14] MEDS: metFORMIN 500 MG TAB PO ×2 (08:20→17:43)
[2017-05-14] MEDS: ENOXAPARIN 40 MG/0.4 ML SYG SC (08:25)
[2017-05-14] MEDS: DOCUSATE SODIUM 100 MG CAP PO ×2 (08:26→20:44)
[2017-05-14] MEDS: CEFTRIAXONE 1 GM/50 ML (PMX) 50 ML IVPB (14:47)
[2017-05-14] MEDS: ATORVASTATIN 40 MG TAB PO (20:44)
[2017-05-14] MEDS: INSULIN GLARGINE [LANtus] 3 ML PEN SC (20:46)
[2017-05-15] MEDS: ACCU-CHEK XX (02:00)
[2017-05-15] MEDS: LINAGLIPTIN 5 MG TABLET PO (08:07)
[2017-05-15] MEDS: ASPIRIN 81 MG TAB PO (08:07)
[2017-05-15] MEDS: FERROUS FUMARATE (SR) TAB PO (08:07)
[2017-05-15] MEDS: DOCUSATE SODIUM 100 MG CAP PO ×2 (08:07→21:00)
[2017-05-15] MEDS: metFORMIN 500 MG TAB PO ×2 (08:07→17:21)
[2017-05-15] MEDS: INSULIN ASPART [NOVOLOG] 3 ML PEN SC ×7 (08:13→21:00)
[2017-05-15] MEDS: ENOXAPARIN 40 MG/0.4 ML SYG SC (08:17)
[2017-05-15] MEDS: CEFTRIAXONE 1 GM/50 ML (PMX) 50 ML IVPB (16:26)
[2017-05-15] MEDS: ATORVASTATIN 40 MG TAB PO (21:11)
[2017-05-15] MEDS: INSULIN GLARGINE [LANtus] 3 ML PEN SC (21:16)
[2017-05-16] MEDS: ACCU-CHEK XX (02:00)
[2017-05-16 05:46] LABS: ADD MAN DIFF? NO
[2017-05-16 06:00] LABS: WHITE BLOOD COUNT 4.1 10^3/ul (4.8-10.8)
[2017-05-16 06:00] LABS: EOSINOPHILS # 0.1 10^3/ul (0.0-0.5); EOSINOPHILS % 1.2 % (0.0-7.0); HEMOGLOBIN 12.2 g/dl (12.0-16.0); LYMPHOCYTES # 1.7 10^3/ul (0.8-2.9); LYMPHOCYTES % 40.8 % (15.0-51.0); MEAN CORPUSCULAR HEMOGLOBIN 25.4 pg (29.0-33.0); MEAN CORPUSCULAR HGB CONC 32.1 g/dl (32.0-37.0); MEAN PLATELET VOLUME 11.5 fl (7.4-10.4); MONOCYTE # 0.5 10^3/ul (0.3-0.9); MONOCYTES % 11.3 % (0.0-11.0); NEUTROPHIL # 1.9 10^3/ul (1.6-7.5); NEUTROPHILS % 46.2 % (39.0-77.0); PLATELET COUNT 207 10^3/UL (140-415); RED BLOOD COUNT 4.81 10^6/ul (4.20-5.40); RED CELL DISTRIBUTION WIDTH 13.6 % (11.5-14.5)
[2017-05-16 06:13] LABS: HEMOGLOBIN A1C 9.1 % (0-5.9)
[2017-05-16 06:19] LABS: ALANINE AMINOTRANSFERASE 27 IU/L (13-69); ALBUMIN 3.8 g/dl (3.3-4.9); ALKALINE PHOSPHATASE 112 IU/L (42-121); ANION GAP 14 (8-16); ASPARTATE AMINO TRANSFERASE 15 IU/L (15-46); BILIRUBIN,INDIRECT 0.3 mg/dl (0-1.1); BILIRUBIN,TOTAL 0.3 mg/dl (0.2-1.3); BLOOD UREA NITROGEN 16 mg/dl (7-20); CALCIUM 8.9 mg/dl (8.4-10.2); CARBON DIOXIDE 28 mmol/L (21-31); CHLORIDE 102 mmol/L (97-110); GLUCOSE 103 mg/dl (70-220); POTASSIUM 4.4 mmol/L (3.5-5.1); SODIUM 140 mmol/L (135-144)
[2017-05-16 07:37] LABS: ERYTHROCYTE SEDIMENTATION RATE 60 mm/Hr (0-20)
[2017-05-16] MEDS: INSULIN ASPART [NOVOLOG] 3 ML PEN SC ×7 (08:06→20:52)
[2017-05-16] MEDS: LINAGLIPTIN 5 MG TABLET PO (08:25)
[2017-05-16] MEDS: FERROUS FUMARATE (SR) TAB PO (08:25)
[2017-05-16] MEDS: metFORMIN 500 MG TAB PO ×2 (08:25→17:24)
[2017-05-16] MEDS: ASPIRIN 81 MG TAB PO (08:25)
[2017-05-16] MEDS: DOCUSATE SODIUM 100 MG CAP PO ×2 (08:25→20:52)
[2017-05-16] MEDS: ENOXAPARIN 40 MG/0.4 ML SYG SC (08:33)
[2017-05-16] MEDS: CEFTRIAXONE 1 GM/50 ML (PMX) 50 ML IVPB (16:35)
[2017-05-16] MEDS: ATORVASTATIN 40 MG TAB PO (20:52)
[2017-05-16] MEDS: INSULIN GLARGINE [LANtus] 3 ML PEN SC (20:55)
[2017-05-17] MEDS: ACCU-CHEK XX (03:19)
[2017-05-17] MEDS: INSULIN ASPART [NOVOLOG] 3 ML PEN SC ×7 (08:15→20:26)
[2017-05-17] MEDS: FERROUS FUMARATE (SR) TAB PO (08:49)
[2017-05-17] MEDS: metFORMIN 500 MG TAB PO ×2 (08:50→17:19)
[2017-05-17] MEDS: ASPIRIN 81 MG TAB PO (08:50)
[2017-05-17] MEDS: LINAGLIPTIN 5 MG TABLET PO (08:50)
[2017-05-17] MEDS: ENOXAPARIN 40 MG/0.4 ML SYG SC (08:54)
[2017-05-17] MEDS: DOCUSATE SODIUM 100 MG CAP PO ×2 (09:00→20:23)
[2017-05-17] MEDS: CEFTRIAXONE 1 GM/50 ML (PMX) 50 ML IVPB (15:18)
[2017-05-17] MEDS: ATORVASTATIN 40 MG TAB PO (20:23)
[2017-05-17] MEDS: INSULIN GLARGINE [LANtus] 3 ML PEN SC (20:27)
[2017-05-18] MEDS: ACCU-CHEK XX (01:40)
[2017-05-18] MEDS: INSULIN ASPART [NOVOLOG] 3 ML PEN SC ×7 (08:15→20:04)
[2017-05-18] MEDS: DOCUSATE SODIUM 100 MG CAP PO ×2 (08:25→20:04)
[2017-05-18] MEDS: FERROUS FUMARATE (SR) TAB PO (08:25)
[2017-05-18] MEDS: ENOXAPARIN 40 MG/0.4 ML SYG SC (08:32)
[2017-05-18] MEDS: ASPIRIN 81 MG TAB PO (08:32)
[2017-05-18] MEDS: LINAGLIPTIN 5 MG TABLET PO (08:38)
[2017-05-18] MEDS: metFORMIN 500 MG TAB PO ×2 (08:38→17:46)
[2017-05-18] MEDS: CEFTRIAXONE 1 GM/50 ML (PMX) 50 ML IVPB (14:13)
[2017-05-18] MEDS: INSULIN GLARGINE [LANtus] 3 ML PEN SC (19:55)
[2017-05-18] MEDS: ATORVASTATIN 40 MG TAB PO (20:02)
[2017-05-19] MEDS: ACCU-CHEK XX (01:05)
[2017-05-19] MEDS: INSULIN ASPART [NOVOLOG] 3 ML PEN SC ×7 (08:15→20:16)
[2017-05-19] MEDS: LINAGLIPTIN 5 MG TABLET PO (08:27)
[2017-05-19] MEDS: metFORMIN 500 MG TAB PO ×2 (08:27→17:22)
[2017-05-19] MEDS: DOCUSATE SODIUM 100 MG CAP PO ×2 (08:27→20:15)
[2017-05-19] MEDS: ASPIRIN 81 MG TAB PO (08:27)
[2017-05-19] MEDS: FERROUS FUMARATE (SR) TAB PO (08:27)
[2017-05-19] MEDS: ENOXAPARIN 40 MG/0.4 ML SYG SC (08:29)
[2017-05-19] MEDS: CEFTRIAXONE 1 GM/50 ML (PMX) 50 ML IVPB (15:27)
[2017-05-19] MEDS: ATORVASTATIN 40 MG TAB PO (20:15)
[2017-05-19] MEDS: INSULIN GLARGINE [LANtus] 3 ML PEN SC (20:15)
[2017-05-20] MEDS: ACCU-CHEK XX (01:37)
[2017-05-20 06:02] LABS: ADD MAN DIFF? NO
[2017-05-20 06:12] LABS: WHITE BLOOD COUNT 4.1 10^3/ul (4.8-10.8)
[2017-05-20 06:12] LABS: BASOPHILS % 0.2 % (0.0-2.0); EOSINOPHILS # 0.1 10^3/ul (0.0-0.5); EOSINOPHILS % 1.9 % (0.0-7.0); HEMATOCRIT 37.5 % (37.0-47.0); HEMOGLOBIN 12.2 g/dl (12.0-16.0); LYMPHOCYTES # 2.5 10^3/ul (0.8-2.9); LYMPHOCYTES % 61.1 % (15.0-51.0); MEAN CORPUSCULAR HEMOGLOBIN 25.6 pg (29.0-33.0); MEAN CORPUSCULAR HGB CONC 32.5 g/dl (32.0-37.0); MEAN CORPUSCULAR VOLUME 78.6 fl (82.0-101.0); MEAN PLATELET VOLUME 11.7 fl (7.4-10.4); MONOCYTE # 0.4 10^3/ul (0.3-0.9); NEUTROPHIL # 1.1 10^3/ul (1.6-7.5); NEUTROPHILS % 27.6 % (39.0-77.0); PLATELET COUNT 171 10^3/UL (140-415); RED BLOOD COUNT 4.77 10^6/ul (4.20-5.40); RED CELL DISTRIBUTION WIDTH 13.2 % (11.5-14.5)
[2017-05-20 07:07] LABS: ALANINE AMINOTRANSFERASE 15 IU/L (13-69); ALBUMIN 3.6 g/dl (3.3-4.9); ALKALINE PHOSPHATASE 100 IU/L (42-121); ANION GAP 17 (8-16); ASPARTATE AMINO TRANSFERASE 20 IU/L (15-46); BILIRUBIN,INDIRECT 0.2 mg/dl (0-1.1); BILIRUBIN,TOTAL 0.2 mg/dl (0.2-1.3); BLOOD UREA NITROGEN 16 mg/dl (7-20); CALCIUM 9.1 mg/dl (8.4-10.2); CARBON DIOXIDE 24 mmol/L (21-31); CHLORIDE 104 mmol/L (97-110); CREATININE 0.56 mg/dl (0.44-1.00); GLUCOSE 103 mg/dl (70-220); POTASSIUM 4.8 mmol/L (3.5-5.1); SODIUM 140 mmol/L (135-144); TOTAL PROTEIN 8.1 g/dl (6.1-8.1)
[2017-05-20] MEDS: INSULIN ASPART [NOVOLOG] 3 ML PEN SC ×7 (08:15→20:03)
[2017-05-20] MEDS: metFORMIN 500 MG TAB PO ×2 (08:17→17:30)
[2017-05-20] MEDS: LINAGLIPTIN 5 MG TABLET PO (08:18)
[2017-05-20] MEDS: ASPIRIN 81 MG TAB PO (08:18)
[2017-05-20] MEDS: FERROUS FUMARATE (SR) TAB PO (08:18)
[2017-05-20] MEDS: DOCUSATE SODIUM 100 MG CAP PO ×2 (08:18→20:03)
[2017-05-20] MEDS: ENOXAPARIN 40 MG/0.4 ML SYG SC (08:27)
[2017-05-20] MEDS: CEFTRIAXONE 1 GM/50 ML (PMX) 50 ML IVPB (14:42)
[2017-05-20] MEDS: INSULIN GLARGINE [LANtus] 3 ML PEN SC (20:00)
[2017-05-20] MEDS: ATORVASTATIN 40 MG TAB PO (20:03)
[2017-05-21] MEDS: ACCU-CHEK XX (02:00)
[2017-05-21] MEDS: INSULIN ASPART [NOVOLOG] 3 ML PEN SC ×6 (08:15→17:27)
[2017-05-21] MEDS: FERROUS FUMARATE (SR) TAB PO (08:18)
[2017-05-21] MEDS: DOCUSATE SODIUM 100 MG CAP PO (08:18)
[2017-05-21] MEDS: ASPIRIN 81 MG TAB PO (08:18)
[2017-05-21] MEDS: metFORMIN 500 MG TAB PO ×2 (08:18→17:02)
[2017-05-21] MEDS: LINAGLIPTIN 5 MG TABLET PO (08:18)
[2017-05-21] MEDS: ENOXAPARIN 40 MG/0.4 ML SYG SC (08:55)
[2017-05-21] MEDS: CEFTRIAXONE 1 GM/50 ML (PMX) 50 ML IVPB (14:34)
== END 2017-05-21 18:45 | disposition home health service (06) | DRG 853 ==
LOC: ICU 04-25 01:42 → MS2 04-26 12:47 → E/R 20:50
PROC: 0J9R0ZZ Drainage of Left Foot Subcutaneous Tissue and Fascia, Open Approach (ICD-10-PCS; principal; 2017-04-25 12:30)
PROC: 0KBW0ZZ Excision of Left Foot Muscle, Open Approach (ICD-10-PCS; 2017-04-25 12:30)
PROC: 0LBW0ZZ Excision of Left Foot Tendon, Open Approach (ICD-10-PCS; 2017-04-25 12:30)
PROC: 0JBQ0ZZ Excision of Right Foot Subcutaneous Tissue and Fascia, Open Approach (ICD-10-PCS; 2017-04-25 12:30)
PROC: 0LBW0ZZ Excision of Left Foot Tendon, Open Approach (ICD-10-PCS; 2017-04-25 12:32)
PROC: 0LUW0KZ Supplement Left Foot Tendon with Nonautologous Tissue Substitute, Open Approach (ICD-10-PCS; 2017-04-25 12:32)
DX: A41.9 Sepsis, unspecified organism (principal); E11.10 Type 2 diabetes mellitus with ketoacidosis without coma; M72.6 Necrotizing fasciitis; A48.0 Gas gangrene; E11.52 Type 2 diabetes mellitus with diabetic peripheral angiopathy with gangrene; D64.9 Anemia, unspecified; B37.49 Other urogenital candidiasis; L97.423 Non-pressure chronic ulcer of left heel and midfoot with necrosis of muscle; B35.1 Tinea unguium; E11.40 Type 2 diabetes mellitus with diabetic neuropathy, unspecified; E11.621 Type 2 diabetes mellitus with foot ulcer; R65.20 Severe sepsis without septic shock; Z79.84 Long term (current) use of oral hypoglycemic drugs; E11.65 Type 2 diabetes mellitus with hyperglycemia; E66.9 Obesity, unspecified; Z68.38 Body mass index [BMI] 38.0-38.9, adult; Z71.3 Dietary counseling and surveillance; Z91.19 Patient's noncompliance with other medical treatment and regimen; R06.83 Snoring; B95.1 Streptococcus, group B, as the cause of diseases classified elsewhere; B95.4 Other streptococcus as the cause of diseases classified elsewhere; B95.61 Methicillin susceptible Staphylococcus aureus infection as the cause of diseases classified elsewhere; B96.4 Proteus (mirabilis) (morganii) as the cause of diseases classified elsewhere; B96.89 Other specified bacterial agents as the cause of diseases classified elsewhere; B96.20 Unspecified Escherichia coli [E. coli] as the cause of diseases classified elsewhere; I80.8 Phlebitis and thrombophlebitis of other sites; E83.42 Hypomagnesemia
CPT/HCPCS: 36415; 36600; 71045; 73630; 73630-LT; 80048; 80053; 80202; 80306; 80307; 81003; 82043; 82565; 82728; 82803; 82962; 83036; 83540; 83605; 83735; 84100; 84443; 84484; 84520; 85025; 85610; 85651; 85730; 87040; 87070; 87075; 87081; 87086; 87102; 87116; 90686; 93005; 93922; 96372; 96374; 96375; 97110; 97116; 97163; 97530; 99291-25